=== PATIENT | male | born 1975 ===

== ENCOUNTER → 2023-02-25 16:16 | Outpatient (CLI) | payer SELFPAY ==
--- NOTE | 2023-02-25 16:29 | DI.RAD_ITS ---
Exam(s) XR KNEE RT 3V AP,LAT,JACKIE EXAM: XR KNEE RT 3V AP,LAT,JACKIE CLINICAL HISTORY: M25.569 pain in unspecified knee. TECHNIQUE: 2D digital imaging was performed of the right knee. Three views obtained. AP, lateral an d PA tunnel views were obtained. COMPARISON: No exams were available for comparison FINDINGS: BONES: No acute fracture is present. No bony destructive lesion is seen. There is an enthesophyte at the superior patella. JOINTS: The knee is normally aligned. There is a small joint effusion. There is mild joint space dhiraj rowing in the medial femoral tibial joint. There is mild spurring of the posterior patella. SOFT TISSUE: Normal. IMPRESSION: 1. Mild degenerative changes of the knee. 2. Small joint effusion. 3. No acute fracture or dislocation. DATA REPOSITORY: RADIATION DOSE DELIVERED:
--- NOTE | 2023-02-25 16:57 | DI.VRAD_ITS ---
PROCEDURE INFORMATION: Exam: XR Right Knee Exam date and time: 02/25/2023 4:22 PM Age: 47 years old Clinical indication: Right; Patient HX: Pain in unspecified knee TECHNIQUE: Imaging protocol: Radiologic exam of the right knee. Views: 3 views. COMPARISON: No relevant prior studies available. FINDINGS: Bones/joints: Small joint effusion. No fracture or dislocation. Normal bone mineralization. Soft tissues: Unremarkable. IMPRESSION: 1. No evidence for acute bony injury. If clinical symptoms persist recommend followup film in 7-10 days. 2. Small joint effusion. Dictated and Authenticated by: Jasmyne Boston MD. Ordering:RENETTA Jones MD
== END ==
PROVIDERS: Visit Provider Physician Assistant Medical
DX: M25.561 Pain in right knee (principal)
CPT/HCPCS: 73562

== ENCOUNTER 2023-02-28 16:17 | Outpatient (REF) | payer SELFPAY ==
[2023-02-28 18:12] LABS: CREATININE 1.5 mg/dL (0.70-1.30); Estimated GFR 56.72 (mL/min/1.73m2)
== END 2023-02-28 16:18 | disposition home or self-care (01) ==
LOC: LBN 16:17
PROVIDERS: Visit Provider Physician Assistant Medical
DX: M25.561 Pain in right knee (principal)
CPT/HCPCS: 82565